=== PATIENT | male | born 1960 | race Two or more races ===

== ENCOUNTER → 2020-02-14 10:28 | Outpatient (BNVA) | payer OTHER, SELFPAY | PROVIDERS: PCP Nurse Practitioner Family; Visit Provider Surgery | DX: Z01.818 Encounter for other preprocedural examination (principal) | CPT/HCPCS: 99203 ==

== ENCOUNTER → 2020-06-06 08:59 | Outpatient (BNVA) | payer OTHER, SELFPAY | PROVIDERS: PCP Nurse Practitioner Family; Visit Provider Surgery | DX: Z12.11 Encounter for screening for malignant neoplasm of colon (principal) | CPT/HCPCS: 99212 ==

== ENCOUNTER 2020-06-25 06:09 | Day surgery (SDC) | payer OTHER, SELFPAY ==
[2020-06-18 16:55] VITALS: BMI 30.9
--- NOTE | 2020-06-24 10:12 | HO.ANESPROP2 ---
Documented by User: Nandini Abdullahi 06/24/20 10:13 HPI - Anesthesia Eval Consult details Narrative: 59yo M for Colonoscopy PMFSH Active Problems Active Problems: All Active Problems (Updated 06/18/20 @ 16:55 by Cecille Sweeney) Colon cancer screening (Acute) HIV (human immunodeficiency virus infection) (Acute) HTN (hypertension), benign (Acute) Past Medical History Medical History Colon cancer screening HIV (human immunodeficiency virus infection) HTN (hypertension), benign Surgical History Surgical History History of inguinal hernia repair Hx of colonoscopy Social History Social History Alcohol intake: current Alcohol intake frequency: holidays/special occasions only Smoking Status: Never smoker Use of substances other than those prescribed or required for medical reasons: No Have you been hit, kicked, punched, or otherwise hurt by someone within the past year? If so, by whom?: No Advance Directives: No Advance Directives Information Provided: No Advance Directives on File: No Meds Allergies Allergy/AdvReac Type Severity Reaction Status Date / Time No Known Allergies Allergy Mild NKA Verified 06/18/20 16:55 Home Medications Medication Instructions Recorded Confirmed Last Taken Type bictegravir 50 mg-emtricitabine 1 tab PO DAILY 02/14/20 06/18/20 Unknown History 200 mg-tenofovir alafenam 25 mg tablet cetirizine 10 mg tablet 10 mg PO DAILY PRN 02/14/20 06/18/20 Unknown History fluticasone propionate 50 2 spray INTRANASAL QAM 02/14/20 06/18/20 Unknown History mcg/actuation nasal spray,suspension cholecalciferol (vitamin D3) 25 mcg PO DAILY 06/18/20 06/18/20 Unknown History [Vitamin D3] Exam Exam Date and Time: June 24, 2020 1012 Height,Weight and Vital Signs: Height 5 ft 5 in Weight 84.368 kg Assessment and Plan Assessment Anesthesia Assessment: Chart Reviewed Documented by User: Kevon Meza 06/25/20 07:16 PMFSH Past Medical History Medical History Colon cancer screening HIV (human immunodeficiency virus infection) HTN (hypertension), benign Family History Family history of problems with anesthesia: No Surgical History Surgical History History of inguinal hernia repair Hx of colonoscopy History of Problems with Anesthesia: No Social History Social History Alcohol intake: current Alcohol intake frequency: holidays/special occasions only Smoking Status: Never smoker Use of substances other than those prescribed or required for medical reasons: No Have you been hit, kicked, punched, or otherwise hurt by someone within the past year? If so, by whom?: No Advance Directives: No Advance Directives Information Provided: No Advance Directives on File: No Meds Allergies Allergy/AdvReac Type Severity Reaction Status Date / Time No Known Allergies Allergy Mild NKA Verified 06/18/20 16:55 Home Medications Medication Instructions Recorded Confirmed Last Taken Type bictegravir 50 mg-emtricitabine 1 tab PO DAILY 02/14/20 06/18/20 Unknown History 200 mg-tenofovir alafenam 25 mg tablet cetirizine 10 mg tablet 10 mg PO DAILY PRN 02/14/20 06/18/20 Unknown History fluticasone propionate 50 2 spray INTRANASAL QAM 02/14/20 06/18/20 Unknown History mcg/actuation nasal spray,suspension cholecalciferol (vitamin D3) 25 mcg PO DAILY 06/18/20 06/18/20 Unknown History [Vitamin D3] Exam Airway Mallampati Class: II TM Dist: <=3cm Neck ROM: Full Heart: ok Lungs: ok
[2020-06-25 06:48] VITALS: BP 123/70; PULSE 65; RESP 18; TEMP 36.3; O2SAT 98
[2020-06-25 07:00] VITALS: BP 123/70; PULSE 65; RESP 18; TEMP 36.3; O2SAT 98
[2020-06-25] MEDS: Lactated Ringers 1,000 ML 100 ML IVCONT (07:12)
--- NOTE | 2020-06-25 07:58 | W.PM.OPN ---
Operative Note Operative Note Date of Service: 06/25/20 Narrative: PREOP DIAGNOSIS: COLON CANCER SCREEN POSTOP DIAGNOSIS: 1. POLYP ABOUT 5 MM IN THE CECUM 2. SUBOPTIMAL BOWEL PREP PROCEDURE: COLONOSCOPY POLYPECTOMY USING COLD FORCEPS X1 SURGEON: NEWTON CRAWLEY MD The patient is a 59-year-old male for screening colonoscopy. He understood the technique procedure. He was aware of the risks, benefits, and alternatives. He was brought to the operating room Andplaced in left lateral decubitus position under monitored anesthesia care. A full digital rectal was done. There were no palpable anal lesions. The tip of the Olympus colonoscope was introduced gently through the anal orifice and advanced with insufflation all the way to the cecum. The cecum was intubated. The cecum was identified by visualization of the ileocecal valve as well as the appendiceal orifice. There was note of a polyp, about 5 mm the cecum. This was removed using multiple bites of the cold forceps. The scope was gradually withdrawn with careful examination of the entire colonic mucosa being done with scope withdrawal. Unfortunately, the patient had multiple segments of the colon with scattered solid stools. We had to do a lot of copious irrigation. It was unlikely that any large lesion may have been missed. There were no other lesions seen. The rectum was examined carefully. He had external hemorrhoids. The rest of the anal canal was unremarkable. The scope was then withdrawn completely. The patient tolerated procedure well. No complication noted. In view of his suboptimal bowel prep, I would recommend another colonoscopy in the next 1-2 years.
[2020-06-25 08:03] VITALS: BP 97/63; PULSE 60; RESP 20; TEMP 36.4; O2SAT 96
--- NOTE | 2020-06-25 08:04 | PM.OP ---
Brief Operative Note Date of Service: 06/25/20 Pre-op diagnosis: colon ca screen Post-op diagnosis: other (polyp in cecum, suboptimal prep) Procedure: colonoscopy, polypectomy x 1 Surgeon: Jesús Cristina MD Anesthesia: MAC Estimated blood loss (mL): 0 Pathology: other (polyp) Condition: stable Disposition: PACU
[2020-06-25 08:18] VITALS: BP 98/69; PULSE 60; RESP 16; O2SAT 97
[2020-06-25 08:25] VITALS: BP 102/63; PULSE 60; RESP 16; O2SAT 99
== END 2020-06-25 09:24 | disposition home or self-care (01) ==
PROVIDERS: Visit Provider Surgery
PROC: 0DJD8ZZ Inspection of Lower Intestinal Tract, Via Natural or Artificial Opening Endoscopic (ICD-10-PCS; CPT 45378; principal; 2020-06-25 07:30)
DX: Z12.11 Encounter for screening for malignant neoplasm of colon (principal); D12.0 Benign neoplasm of cecum; K64.8 Other hemorrhoids; I10 Essential (primary) hypertension; B20 Human immunodeficiency virus [HIV] disease; Z79.899 Other long term (current) drug therapy
CPT/HCPCS: 45380; 88305

== ENCOUNTER → 2020-07-10 08:50 | Outpatient (BNVA) | payer OTHER, SELFPAY | PROVIDERS: Visit Provider Surgery | DX: Z12.11 Encounter for screening for malignant neoplasm of colon (principal); D12.0 Benign neoplasm of cecum | CPT/HCPCS: 99212 ==

== ENCOUNTER 2020-11-25 08:09 | Emergency (ER) | payer OTHER, SELFPAY ==
[2020-11-25 08:28] VITALS: BP 123/63; PULSE 64; RESP 18; TEMP 36.6; O2SAT 97; BMI 30.8
--- NOTE | 2020-11-25 09:08 | ED.ALLEREA ---
HPI - Allergic Reaction General Chief complaint: Allergic Reaction Stated complaint: Allergic reaction Time Seen by Provider: 11/25/20 09:05 Source: patient Mode of arrival: ambulatory Limitations: no limitations History of Present Illness MD complaint: other (skin rash) Onset (ago): day(s) (2) Exposure: plant Symptoms: rash and itching Severity: mild Treatment prior to arrival: none Previous Allergic Reaction History: none Related Data Home Medications Medication Instructions Recorded Confirmed bictegravir 50 mg-emtricitabine 1 tab PO DAILY 02/14/20 07/10/20 200 mg-tenofovir alafenam 25 mg tablet cetirizine 10 mg tablet 10 mg PO DAILY PRN 02/14/20 07/10/20 fluticasone propionate 50 2 spray INTRANASAL QAM 02/14/20 07/10/20 mcg/actuation nasal spray,suspension cholecalciferol (vitamin D3) 25 25 mcg PO DAILY 06/18/20 07/10/20 mcg (1,000 unit) capsule (Vitamin D3) Previous Rx's Medication Instructions Recorded sodium,potassium,mag sulfates 17.5 See Rx Instructions PO .COMPLEX 02/14/20 gram-3.13 gram-1.6 gram oral soln #354 ml (Suprep Bowel Prep Kit) sodium,potassium,mag sulfates 17.5 See Rx Instructions PO .COMPLEX 06/06/20 gram-3.13 gram-1.6 gram oral soln #354 ml (Suprep Bowel Prep Kit) bisacodyl 5 mg tablet,delayed 5 mg PO ONCE 1 Days #2 tab 06/24/20 release (Dulcolax (bisacodyl)) polyethylene glycol 3350 17 119 g PO .twice 1 Days #119 g 06/24/20 gram/dose oral powder (Miralax) docusate sodium 100 mg capsule 100 mg PO DAILY #60 cap 07/16/20 (Colace) prednisone 10 mg tablet See Rx Instructions .ROUTE 11/25/20 .COMPLEX #32 tab Allergies Allergy/AdvReac Type Severity Reaction Status Date / Time No Known Allergies Allergy Mild NKA Verified 07/10/20 09:02 Review of Systems Review of Systems: Constitutional : No Fever, No Chills ENT/Mouth : No sore throat, No Rhinorrhea Eyes: No Eye Pain, No Swelling, No Redness Cardiovascular : No Chest Pain, No SOB Respiratory : No Cough, No Sputum Gastrointestinal : No Nausea, No Vomiting, No Diarrhea, No abdominal Pain Genitourinary : No Dysuria, No Hematuria Musculoskeletal : No joint pain, No Myalgias, No Joint Swelling Skin : No Skin Lesions, positive skin rash Neuro : No Weakness, No Numbness, No Headache Psych : No Anxiety, No Depression Heme/Lymph: No Bruising, No Bleeding,No Lymphadenopathy Endocrine : No Polyuria, No Polydipsia All other systems reviewed and are negative [facility] Past Medical History Attestation statement: The following information was validated with the patient. Medical History Adenoma of cecum Colon cancer screening Colon cancer screening HIV (human immunodeficiency virus infection) HTN (hypertension), benign Surgical History History of inguinal hernia repair Hx of colonoscopy Social History Social History (Updated 11/25/20 @ 09:14 by Orquidea Matthews DO) Alcohol intake: current Alcohol intake frequency: holidays/special occasions only Patient Tobacco Use Status: Never used Tobacco Physical Exam Vital Signs: Vital Signs: Last Vital Signs Temp 97.8 F 11/25/20 08:28 Pulse 64 11/25/20 08:28 Resp 18 11/25/20 08:28 BP 123/63 11/25/20 08:28 Pulse Ox 97 11/25/20 08:28 Body Mass Index 30.8 Appearance: Alert. Oriented X3. No acute distress. Eyes: Pupils equal, round and reactive to light. ENT: Pharynx normal. Neck: Normal inspection. Neck supple. CVS: Normal heart rate and rhythm. Pulses normal. Respiratory: No respiratory distress. Breath sounds normal. Abdomen: Soft and nontender. Skin: Skin warm and dry. Normal skin color. Normal skin turgor. Extremities: No lower extremity edema. linear serpiginous raised areas on arms and legs minimal most notably on R forearm Neuro: Oriented X 3. No motor deficit. No sensory deficit. 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 that are pruritic on arms and legs - minimal sites no resp involvement it is not extensive, oral steroid taper Discharge Plan Discharge Clinical Impression: Allergic dermatitis due to poison yulissa Patient Disposition: Home, Self-Care Instructions: Poison Yulissa (ED) Additional Instructions: return to ED for any worsening symptoms or concerns Prescriptions: New prednisone 10 mg tablet See Rx Instructions .ROUTE .COMPLEX Qty: 32 RF: 0 No Action polyethylene glycol 3350 [Miralax] 17 gram/dose powder 119 g PO .twice 1 Days Qty: 119 RF: 0 bisacodyl [Dulcolax (bisacodyl)] 5 mg tablet,delayed release (DR/EC) 5 mg PO ONCE 1 Days Qty: 2 RF: 0 docusate sodium [Colace] 100 mg capsule 100 mg PO DAILY Qty: 60 RF: 0 cholecalciferol (vitamin D3) [Vitamin D3] 25 mcg (1,000 unit) Capsule 25 mcg PO DAILY RF: 0 Suprep Bowel Prep Kit 17.5-3.13-1.6 gram recon soln See Rx Instructions PO .COMPLEX Qty: 354 RF: 0 Biktarvy 50-200-25 mg tablet 1 tab PO DAILY RF: 0 fluticasone propionate 50 mcg/actuation spray,suspension 2 spray intranasal QAM RF: 0 cetirizine 10 mg tablet 10 mg PO DAILY PRN (Reason: allergies) RF: 0 Suprep Bowel Prep Kit 17.5-3.13-1.6 gram recon soln See Rx Instructions PO .COMPLEX Qty: 354 RF: 0 Stand Alone Forms: Work/School Release Print Language: Pashto
[2020-11-25] MEDS: predniSONE 20 MG TABLET 60 MG PO (09:17)
== END 2020-11-25 09:28 | disposition home or self-care (01) ==
LOC: HO.ED 09:16
PROVIDERS: Emergency Provider Emergency Medicine
DX: L23.7 Allergic contact dermatitis due to plants, except food (principal); R21 Rash and other nonspecific skin eruption
CPT/HCPCS: 99283

== ENCOUNTER 2020-11-28 12:11 | Emergency (ER) | payer OTHER, SELFPAY ==
[2020-11-28 12:24] VITALS: BP 126/77; PULSE 61; RESP 19; TEMP 36.1; O2SAT 99; BMI 29.8
--- NOTE | 2020-11-28 14:14 | ED.GENADULT ---
HPI - General Adult General Chief complaint: General Medical Stated complaint: Recheck Time Seen by Provider: 11/28/20 14:14 Source: patient Mode of arrival: ambulatory Limitations: language barrier History of Present Illness HPI narrative: 60 y/o male presenting to the ER with continued symptoms of poison yulissa. He was seen here on 11/25 and started on a prednisone taper. He reports ongoing itching. He has not tried topical treatments or benadryl. He has been compliant with prednisone. No SOB, wheezing or facial involvement. No new exposures. MD complaint: poison yulissa Onset (ago): day(s) (5) Location: left, right, upper extremity and lower extremity Radiation: non-radiation Severity: severe Quality: burning and aching Pain Consistency: intermittent Relieving factors: cold therapy and medication Associated symptoms: denies other symptoms Treatments prior to arrival: other (prednisone) Related Data Home Medications Medication Instructions Recorded Confirmed bictegravir 50 mg-emtricitabine 1 tab PO DAILY 02/14/20 07/10/20 200 mg-tenofovir alafenam 25 mg tablet cetirizine 10 mg tablet 10 mg PO DAILY PRN 02/14/20 07/10/20 fluticasone propionate 50 2 spray INTRANASAL QAM 02/14/20 07/10/20 mcg/actuation nasal spray,suspension cholecalciferol (vitamin D3) 25 25 mcg PO DAILY 06/18/20 07/10/20 mcg (1,000 unit) capsule (Vitamin D3) Previous Rx's Medication Instructions Recorded sodium,potassium,mag sulfates 17.5 See Rx Instructions PO .COMPLEX 02/14/20 gram-3.13 gram-1.6 gram oral soln #354 ml (Suprep Bowel Prep Kit) sodium,potassium,mag sulfates 17.5 See Rx Instructions PO .COMPLEX 06/06/20 gram-3.13 gram-1.6 gram oral soln #354 ml (Suprep Bowel Prep Kit) bisacodyl 5 mg tablet,delayed 5 mg PO ONCE 1 Days #2 tab 06/24/20 release (Dulcolax (bisacodyl)) polyethylene glycol 3350 17 119 g PO .twice 1 Days #119 g 06/24/20 gram/dose oral powder (Miralax) docusate sodium 100 mg capsule 100 mg PO DAILY #60 cap 07/16/20 (Colace) prednisone 10 mg tablet See Rx Instructions .ROUTE 11/25/20 .COMPLEX #32 tab diphenhydramine HCl 25 mg tablet 50 mg PO TID PRN #20 tab 11/28/20 (Benadryl Allergy) hydrocortisone 2.5 % topical cream 1 appl TOPICAL BID PRN #28 g 11/28/20 prednisone 10 mg tablets in a dose 10 mg PO PER PKG DIR #48 ea 11/28/20 pack Allergies Allergy/AdvReac Type Severity Reaction Status Date / Time No Known Allergies Allergy Mild NKA Verified 11/28/20 12:24 Review of Systems Review of Systems: Constitutional: No Fever, No Chills Eyes: No Eye Pain, No Swelling, No Redness Cardiovascular: No Chest Pain, No SOB Respiratory: No Cough, No Wheezing Gastrointestinal: No Nausea, No Vomiting, No abdominal Pain Musculoskeletal: No joint pain, No Myalgias Skin: + Skin Lesions, + rash Neuro: No Weakness, No Numbness, No Dizziness, No Headache Psych: + Anxiety/Panic, No Depression Heme/Lymph: No Bruising, No Lymphadenopathy PMFSH Past Medical History Medical History Adenoma of cecum Colon cancer screening Colon cancer screening HIV (human immunodeficiency virus infection) HTN (hypertension), benign Surgical History History of inguinal hernia repair Hx of colonoscopy Social History Social History (Updated 11/25/20 @ 09:14 by Orquidea Matthews DO) Alcohol intake: current Alcohol intake frequency: holidays/special occasions only Patient Tobacco Use Status: Never used Tobacco Advance Directives: No Advance Directives Information Provided: Yes Physical Exam Vital Signs: Vital Signs: Last Vital Signs Temp 97 F 11/28/20 12:24 Pulse 61 11/28/20 12:24 Resp 19 11/28/20 12:24 BP 126/77 11/28/20 12:24 Pulse Ox 99 11/28/20 12:24 Body Mass Index 29.8 Const: General: cooperative, healthy appearing, comfortable and no acute distress HENMT: Head: Yes normal to inspection Ears: hearing grossly normal bilaterally General nose exam: Normal external nose present Face and sinus: Yes normal facial exam and Yes face symmetric Mouth: Normal oral and palatal mucosa present, lip normal, tongue normal and oropharynx normal Throat: Yes posterior oropharynx normal Eyes: General: appearance normal, both eyes and all related structures Neck: Neck: Yes normal visual inspection and Yes full ROM Chest: Chest palpation & inspection: normal inspection of the chest Resp: Effort & Inspection: normal respiratory effort and able to speak in complete sentences Auscultation: clear to auscultation bilaterally Skin: Rashes: rashes noted (consistent with poison yulissa dermatitis. no warmth or tenderness) maculopapular rash multiple locations Course Course Course Narrative: 60 y/o male presenting with ongoing itchy skin rash after exposure to poison yulissa several days ago. Symptoms not improving with 40 mg PO prednisone. No evidence of superimposed bacterial infection. Will plan to increase steroid dose, add topical benadryl, PO benadryl and topical hydrocortisone PRN. Patient counseled on expected course and management. He was encouarged to f/u with PCP for further management. Critical Care Time Critical Care Time Critical Care Time: No Discharge Plan Discharge Clinical Impression: Poison yulissa dermatitis Patient Disposition: Home, Self-Care Instructions: Poison Yulissa (ED), Cold Compress or Soak (ED) Additional Instructions: Start the higher dose steroids as directed starting today. Complete the entire course. Take the prescribed Benadryl as needed for itching and use the prescribed cream as needed for itching. Recommend over the counter Benadryl spray to help with itching as well. Use ice to the area to help with itching. Follow up with your doctor as needed. If you develop new or worsening symptoms call 911 or come back to the ER for further evaluation. Prescriptions: New prednisone 10 mg tablets,dose pack 10 mg PO PER PKG DIR Qty: 48 RF: 0 diphenhydramine HCl [Benadryl Allergy] 25 mg tablet 50 mg PO TID PRN (Reason: itching) Qty: 20 RF: 0 hydrocortisone 2.5 % cream 1 appl topical BID PRN (Reason: itching) Qty: 28 RF: 0 No Action polyethylene glycol 3350 [Miralax] 17 gram/dose powder 119 g PO .twice 1 Days Qty: 119 RF: 0 bisacodyl [Dulcolax (bisacodyl)] 5 mg tablet,delayed release (DR/EC) 5 mg PO ONCE 1 Days Qty: 2 RF: 0 docusate sodium [Colace] 100 mg capsule 100 mg PO DAILY Qty: 60 RF: 0 cholecalciferol (vitamin D3) [Vitamin D3] 25 mcg (1,000 unit) Capsule 25 mcg PO DAILY RF: 0 prednisone 10 mg tablet See Rx Instructions .ROUTE .COMPLEX Qty: 32 RF: 0 Suprep Bowel Prep Kit 17.5-3.13-1.6 gram recon soln See Rx Instructions PO .COMPLEX Qty: 354 RF: 0 Biktarvy 50-200-25 mg tablet 1 tab PO DAILY RF: 0 fluticasone propionate 50 mcg/actuation spray,suspension 2 spray intranasal QAM RF: 0 cetirizine 10 mg tablet 10 mg PO DAILY PRN (Reason: allergies) RF: 0 Suprep Bowel Prep Kit 17.5-3.13-1.6 gram recon soln See Rx Instructions PO .COMPLEX Qty: 354 RF: 0 Referrals: [facility] [Primary Care Provider] - 2 days Interventions: ED Discharge Assessment Last Done: 11/28/20 14:55 Discharge Date/Time: 11/28/20 14:56 Print Language: South Korean
== END 2020-11-28 14:56 | disposition home or self-care (01) ==
PROVIDERS: Emergency Provider Emergency Medicine
DX: L23.7 Allergic contact dermatitis due to plants, except food (principal); M79.661 Pain in right lower leg; M79.605 Pain in left leg; M79.604 Pain in right leg; Z79.899 Other long term (current) drug therapy
CPT/HCPCS: 99283

== ENCOUNTER 2021-06-19 09:46 | Outpatient (REF) | payer OTHER, SELFPAY ==
--- NOTE | ~2021-06-19 | MM_ITS ---
EXAMINATION: BONE DENSITOMETRY CLINICAL INDICATION: Other specified personal risk factors, not elsewhere classified. COMPARISON: None (current study represents initial baseline exam). TECHNIQUE: Using a [employer] DXA System (software version: 13.1) manufactured by [employer], dual-energy x-ray absorptiometry was performed of the lumbar spine and left hip. The images are of good technical quality. Summary results are attached. FINDINGS: AP SPINE L1-L4: BMD 1.191 g/cm2, Z-score 0.0, T-score -0.2, normal. LEFT FEMUR, NECK: BMD 0.886 g/cm2, Z-score -0.5, T-score -1.4, osteopenia. LEFT FEMUR, TOTAL: BMD 0.981 g/cm2, Z-score -0.4, T-score -0.8, normal. IDENTIFIED RISK FACTORS: None listed. HISTORY OF FRACTURE: None listed. MEDICATIONS: Vitamin D. MM/XR DEXA axial skeleton IMPRESSION: 1. DIAGNOSIS: Osteopenia based on the lowest T-score value of -1.4 in the femoral neck applying World Health Organization criteria. 2. 10-YEAR FRACTURE RISK PREDICTION, FRAX: Major osteoporotic fracture (clinical spine, forearm, hip or shoulder) 3.3%. Hip fracture 0.4%. 3. Treatment Recommendations: NOF guidelines recommend consideration for treatment in postmenopausal women and men age 50 and older presenting with the following: -A hip or vertebral (clinical or morphometric) fracture. -T-score less than or equal to -2.5 at the femoral neck or spine after appropriate evaluation to exclude secondary causes. -Low bone mass at the hip or spine and a 10-year fracture probability by FRAX of greater than or equal to 3% for hip fracture or greater than or equal to 20% for major osteoporotic fracture based on the [place] adapted WHO algorithm. 4. Other Recommendations: All treatment decisions require clinical judgment and consideration of individual patient factors, including patient preferences, comorbidities, previous drug use, risk factors not captured in the FRAX model (e.g. frailty, falls, vitamin D deficiency, increased bone turnover, interval significant decline in bone density) and possible under or overestimation of fracture risk by FRAX. Additional medical evaluation for secondary cause of low bone mineral density may be appropriate. FUTURE SCAN RECOMMENDATION: People with diagnosed cases of osteoporosis or at high risk for fracture should have regular bone mineral density tests. For patients eligible for Medicare, routine testing is allowed once every 2 years. The testing frequency can be increased to one year for patients who have rapidly progressing disease, those who are receiving or discontinuing medical therapy to restore bone mass, or have additional risk factors.
== END 2021-06-19 09:47 | disposition home or self-care (01) ==
LOC: HO.MAMMO 09:46
PROVIDERS: PCP Nurse Practitioner; Visit Provider Nurse Practitioner
DX: Z13.820 Encounter for screening for osteoporosis (principal); B20 Human immunodeficiency virus [HIV] disease
CPT/HCPCS: 77080

== ENCOUNTER → 2021-07-07 08:29 | Outpatient (BNVA) | payer OTHER, SELFPAY | PROVIDERS: PCP Nurse Practitioner; Referring Provider Nurse Practitioner; Visit Provider Surgery | DX: Z12.11 Encounter for screening for malignant neoplasm of colon (principal) | CPT/HCPCS: 99212 ==

== ENCOUNTER 2021-09-09 06:16 | Day surgery (SDC) | payer OTHER, SELFPAY ==
--- NOTE | 2021-09-08 10:50 | HO.ANESPROP2 ---
Documented by User: Nandini Abdullahi NP 09/08/21 10:51 HPI - Anesthesia Eval Consult details Narrative: 60yo M for Colonoscopy s/p colo 06/2020 with [facility] PMF[facility] Active Problems Active Problems: All Active Problems (Updated 11/29/20 @ 00:02 by Jami Pollack) Adenoma of cecum (Acute) Colon cancer screening (Acute) Colon cancer screening (Acute) HIV (human immunodeficiency virus infection) (Acute) HTN (hypertension), benign (Acute) Past Medical History Medical History Adenoma of cecum Colon cancer screening Colon cancer screening HIV (human immunodeficiency virus infection) HTN (hypertension), benign Family History Family history of problems with anesthesia: No Surgical History Surgical History (Updated 09/03/21 @ 11:02 by Ania Braswell RN) History of inguinal hernia repair Hx of colonoscopy History of Problems with Anesthesia: No Social History Social History Alcohol intake: current Alcohol intake frequency: holidays/special occasions only Patient Tobacco Use Status: Never used Tobacco Are you DNR?: No Advance Directives: No Advance Directives Information Provided: Yes Recently lost weight without trying: No Nutrition Risks: No Nutritional Risk Meds Allergies Allergy/AdvReac Type Severity Reaction Status Date / Time No Known Allergies Allergy Mild NKA Verified 07/07/21 08:40 Home Medications Medication Instructions Recorded Confirmed Last Taken Type bictegravir 50 mg-emtricitabine 1 tab PO DAILY 02/14/20 09/03/21 Unknown History 200 mg-tenofovir alafenam 25 mg tablet cetirizine 10 mg tablet 10 mg PO DAILY PRN 02/14/20 09/03/21 Unknown History fluticasone propionate 50 2 spray INTRANASAL QAM 02/14/20 09/03/21 Unknown History mcg/actuation nasal spray,suspension cholecalciferol (vitamin D3) 25 25 mcg PO DAILY 06/18/20 09/03/21 Unknown History mcg (1,000 unit) capsule (Vitamin D3) Exam Exam Date and Time: September 08, 2021 1050 Assessment and Plan Assessment Anesthesia Assessment: Chart Reviewed Final Anesthetic Review Family History of Problems with Anesthesia: No History of Problems with Anesthesia: No Documented by User: Estrella Arana MD 09/09/21 07:27 [facility] Past Medical History Medical History Adenoma of cecum Colon cancer screening Colon cancer screening HIV (human immunodeficiency virus infection) HTN (hypertension), benign Functional capacity: independent ambulation Surgical History Surgical History (Updated 09/03/21 @ 11:02 by Ania Braswell RN) History of inguinal hernia repair Hx of colonoscopy Social History Social History Alcohol intake: current Alcohol intake frequency: holidays/special occasions only Patient Tobacco Use Status: Never used Tobacco Are you DNR?: No Advance Directives: No Advance Directives Information Provided: Yes Recently lost weight without trying: No Nutrition Risks: No Nutritional Risk Meds Allergies Allergy/AdvReac Type Severity Reaction Status Date / Time No Known Allergies Allergy Mild NKA Verified 07/07/21 08:40 Home Medications Medication Instructions Recorded Confirmed Last Taken Type bictegravir 50 mg-emtricitabine 1 tab PO DAILY 02/14/20 09/03/21 Unknown History 200 mg-tenofovir alafenam 25 mg tablet cetirizine 10 mg tablet 10 mg PO DAILY PRN 02/14/20 09/03/21 Unknown History fluticasone propionate 50 2 spray INTRANASAL QAM 02/14/20 09/03/21 Unknown History mcg/actuation nasal spray,suspension cholecalciferol (vitamin D3) 25 25 mcg PO DAILY 06/18/20 09/03/21 Unknown History mcg (1,000 unit) capsule (Vitamin D3) Exam Airway Mallampati Class: III TM Dist: >3cm Neck ROM: Full Heart: RRR Lungs: CTA Assessment and Plan Final Anesthetic Review ASA Class: II Final Preanesthetic Review: No Changes in Pt Med Stat, Meds/Allgs Chart Reviewed, Consent Obtained/Reviewed and Anes Risks/Benef Reviewed Patient Risk: Low Procedure Risk: Low Anesthetic Plan Anesthetic Plan: MAC: Disposition: Standard PACU
[2021-09-09 06:01] VITALS: BMI 29.9
[2021-09-09 06:22] VITALS: BP 123/69; PULSE 72; RESP 18; TEMP 36.8; O2SAT 98
[2021-09-09] MEDS: Lactated Ringers 1,000 ML 100 ML IVCONT (06:45)
--- NOTE | 2021-09-09 07:21 | MHC.SHP ---
Pre-Procedural Eval Section A Date of Service: 09/09/21 Section B Chief Complaint: screening Details of Present Illness: had poor bowel prep last year Relevant Family History (Specify if Yes): No Present Medications: see Short Stay Collaborative assessment Medical History: Significant History (HTN, HIV) History of Previous Operations: No relevant previous surgery Allergies: Allergies Allergy/AdvReac Type Severity Reaction Status Date / Time No Known Allergies Allergy Mild NKA Verified 07/07/21 08:40 Review of Systems Sugical H&P ROS: Negative: Constitution, Cardiovascular, Respiratory, Neurological, Psychiatric, Hem-Onc, Allergic/Immunologic, Gastrointestinal, Genitourinary, Musculoskeletal, Integumentary, Endocrine and Eyes/Ears/Nose/Throat Exam Surgical H&P Exam: Normal: HEENT, Normal: Heart, Normal: Lungs, Normal: Extremities, Normal: Abdomen, Normal: Skin and Normal: Neurological Plan Diagnosis/Plan: Unchanged I have reviewed the history and physical and performed a pertinent physical examination on my patient. No changes have occurred unless specified.
[2021-09-09 08:08] VITALS: BP 102/57; PULSE 63; RESP 16; TEMP 36.6; O2SAT 94
--- NOTE | 2021-09-09 08:08 | W.PM.OPN ---
Operative Note Operative Note Date of Service: 09/09/21 Narrative: Preop diagnosis: Screening colonoscopy Postop diagnosis: Normal colonoscopy findings Procedure: Colonoscopy Surgeon: Jesús Cristina MD The patient is a 60-year-old male who had a colonoscopy last year with poor bowel prep. I had recommended a repeat colonoscopy with in 1 year because of this. He understood the technique of the procedure. He was aware of the risks, benefits, and alternatives He was brought to the operating room. He was placed in left lateral decubitus position under monitored anesthesia care. a full digital rectal exam was done. There were no palpable anal canal lesions. The tip of the Olympus colonoscope was gently introduced through the anal orifice and advanced with insufflation all the way to the cecum. The cecum was intubated. The cecum identified by visualization of the ileocecal valve as well as the appendiceal orifice. The cecal mucosa was unremarkable. The scope was gradually withdrawn with careful examination of the entire colonic mucosa being done with scope withdrawal. The patient had good bowel prep this time so it was unlikely that any lesion may have been missed. The rectum was reached. There were no lesions seen. The anal canal was unremarkable. They rectal shelf was unremarkable. The scope was then withdrawn completely with desufflation . The patient tolerated procedure well. There were no complications noted . Withdrawal time was about 7 minutes. He falls at average risk for colon cancer. His next colonoscopy may be in the next 10 years.
[2021-09-09 08:23] VITALS: BP 131/76; PULSE 61; RESP 16; TEMP 36.6; O2SAT 99
--- NOTE | 2021-09-09 09:02 | HO.POSTANES ---
Post Anesthesia Evaluation Post Anesthesia Evaluation Vital Signs: Vital Signs Temp Pulse Resp BP Pulse Ox 09/09/21 08:23 98 F 61 16 131/76 99 09/09/21 08:08 97.8 F 63 16 102/57 L 94 09/09/21 06:22 98.2 F 72 18 123/69 98 Anesthesia: Monitored Mental Status: Awake Pain Control: Satisfactory Nausea/Vomiting: None Hydration: Adequate Anesthesia-Related Issues: No Anes. Related Issues
== END 2021-09-09 09:37 | disposition home or self-care (01) ==
PROVIDERS: PCP Nurse Practitioner; Visit Provider Surgery
PROC: 0DJD8ZZ Inspection of Lower Intestinal Tract, Via Natural or Artificial Opening Endoscopic (ICD-10-PCS; CPT 45378; principal; 2021-09-09 07:30)
DX: Z12.11 Encounter for screening for malignant neoplasm of colon (principal); Z86.010 Personal history of colon polyps; B20 Human immunodeficiency virus [HIV] disease; I10 Essential (primary) hypertension; Z79.899 Other long term (current) drug therapy
CPT/HCPCS: G0105

== ENCOUNTER → 2021-09-18 08:43 | Outpatient (BNVA) | payer OTHER, SELFPAY | PROVIDERS: PCP Nurse Practitioner; Referring Provider Nurse Practitioner; Visit Provider Surgery | DX: Z98.890 Other specified postprocedural states (principal) | CPT/HCPCS: 99212 ==

== ENCOUNTER 2022-10-30 14:33 | Emergency (ER) | payer OTHER, SELFPAY ==
[2022-10-30 14:36] VITALS: BP 138/78; PULSE 75; RESP 18; TEMP 36.6; O2SAT 98; BMI 30.6
--- NOTE | 2022-10-30 14:36 | ED_ITS ---
HPI - General Adult General Chief complaint: Headache Stated complaint: headache Time Seen by Provider: 10/30/22 16:27 Source: patient Mode of arrival: ambulatory Limitations: no limitations History of Present Illness HPI narrative: With history of hypertension, HIV with undetectable viral load been having left-sided headache for last 1 week no nausea no vomiting no light sensitivity no head injury no fever no chills no URI symptoms patient with increased stress at home no history of migraine never had similar headaches in the past Related Data Home Medications Medication Instructions Recorded Confirmed bictegravir 50 mg-emtricitabine 1 tab PO DAILY 02/14/20 09/18/21 200 mg-tenofovir alafenam 25 mg tablet cetirizine 10 mg tablet 10 mg PO DAILY PRN allergies 02/14/20 09/18/21 fluticasone propionate 50 2 spray intranasal QAM 02/14/20 09/18/21 mcg/actuation nasal spray,suspension cholecalciferol (vitamin D3) 25 25 mcg PO DAILY 06/18/20 09/18/21 mcg (1,000 unit) capsule (Vitamin D3) Previous Rx's Medication Instructions Recorded bisacodyl 5 mg tablet,delayed 5 mg PO ONCE for bowel prep 1 day 06/24/20 release (Dulcolax (bisacodyl)) #2 tabs [id number] 1 cap PO Q6H PRN headache #20 caps 10/30/22 50 mg-300 mg-40 mg capsule (Fioricet) Allergies Allergy/AdvReac Type Severity Reaction Status Date / Time No Known Allergies Allergy Mild NKA Verified 09/18/21 09:00 Review of Systems Review of Systems: Yes all other systems are reviewed and are negative [facility] Past Medical History Medical History Adenoma of cecum Colon cancer screening Colon cancer screening HIV (human immunodeficiency virus infection) HTN (hypertension), benign Surgical History History of colonoscopy (~09/09/21) History of inguinal hernia repair Hx of colonoscopy Social History Social History Alcohol intake: never Patient Tobacco Use Status: Never used Tobacco Smoked in Last 30 Days: No Use of substances other than those prescribed or required for medical reasons: No Advance Directives: No Advance Directives Information Provided: No Physical Exam ED Vital Signs: Vital Signs - 24 hr 10/30/22 14:36 10/30/22 14:59 Temperature 98 F 98.0 F Pulse Rate 75 72 Respiratory Rate 18 18 Blood Pressure 138/78 124/73 Pulse Oximetry 98 98 Oxygen Delivery Method Room Air Room Air BMI result Body Mass Index 30.6 Appearance: Alert. Oriented X3. No acute distress. Eyes: PERRLA, No Nystagmus ENT: Pharynx normal. Oral Mucosa moist no temporal artery tenderness Neck: Normal inspection. Neck supple. CVS: Normal heart rate and rhythm. Pulses normal. Respiratory: No respiratory distress. Equal air entry bilateral, no wheezing/rales/rhonchi Abdomen: Soft and nontender. Bowel sounds are present, no mass palpable, no CVA tenderness Skin: Skin warm and dry. Normal skin color. Normal skin turgor. Extremities: No lower extremity edema. No calf tenderness Neuro: Oriented X 3. No motor deficit. No sensory deficit.No cerebellar signs , cranial nerves II-XII intact Course Course Course Narrative: This is an RME: Additional HPI, ROS, PE not included below will be deferred to primary provider. 62 year old male with a history of hypertension and HIV presents with left sided headaches that are worse in the morning worsening for the past 2 weeks. Patient reports 6/10 pain. Patient denies fevers, chills, numbness, tingling, nausea, and vomiting. Plan: head CT, labs, ESR, CRP Medications Administered Discontinued Medications Generic Name Dose Route Start Last Admin Trade Name Frances PRN Reason Stop Dose Admin Acetaminophen/Butalbital/Caffeine 1 tab 10/30/22 17:24 10/30/22 17:34 Butalb/Acetamin/Caff 50/325/40 Tablet PO 10/30/22 17:25 1 tab ONCE ONE Administration Medical Decision Making Medical Decision Making [facility] Narrative: Patient nonspecific headache with no relation to the light /posture no fever no chills no warning signs TMJ normal likely has a tension headache/complex migraine will discharge patient home on Fioricet, CT scan of the head was negative acute labs were stable including CRP and sed rate Differential Diagnosis Differential Diagnoses: The differential diagnosis associated with the presentation includes Temporal arteritis/migraine/tension/space-occupying lesion Lab Data [facility] Lab Attestation statement: I reviewed the patient's lab results. 10/30/22 15:09 10/30/22 15:09 Labs: Lab Results 10/30/22 10/30/22 10/30/22 Range/Units 15:09 15:09 15:09 WBC 6.8 (4.8-10.8) X10*3/uL RBC 4.73 (4.60-5.80) X10*6/uL Hgb 14.7 (14.0-18.0) g/dl Hct 42.8 (42.0-52.0) % MCV 90.5 (80.0-98.0) fL MCH 31.1 (27.0-33.0) pg MCHC 34.3 (31.0-36.0) g/dl RDW 13.0 (11.0-16.0) % Plt Count 273 (160-400) X10*3/uL MPV 9.4 (9.4-12.4) fL Immature Gran % (Auto) 0.3 (0.0-0.4) % Neut % (Auto) 65.0 (45-73) % Lymph % (Auto) 26.3 (20-40) % [place] % (Auto) 5.6 (2-11) % Eos % (Auto) 2.2 (0-4) % Baso % (Auto) 0.6 (0-2) % Lymph # (Auto) 1.8 (1.2-4.9) X10*3/uL [place] # (Auto) 0.4 (0.1-1.2) X10*3/uL Eos # (Auto) 0.2 (0.0-0.4) X10*3/uL Baso # (Auto) 0.0 (0.0-0.2) X10*3/uL Abs Immat Gran (auto) 0.02 (0.00-0.03) X10*3/uL Absolute Neuts (auto) 4.4 (2.0-8.3) x10*3/uL Absolute Nucleated RBC 0.000 (0.0-0.012) X10*3/uL Nucleated RBC % (auto) 0.0 (0.0-0.2) /100WBC ESR 7 (0-15) MM/HR Sodium 142 (135-145) mmol/L Potassium 3.7 (3.3-5.1) mmol/L Chloride 110 H (96-108) mmol/L Carbon Dioxide 22 (22-29) mmol/L Anion Gap 14 (12-20) BUN 11 (9-16) mg/dL Creatinine 1.11 (0.5-1.4) mg/dL Estim Creat Clear Calc 67.7 Estimated GFR > 60 Random Glucose 88 (60-115) mg/dL Calcium 9.4 (8.4-10.2) mg/dL Magnesium 2.0 (1.6-2.6) mg/dL Total Bilirubin 0.4 (0.0-1.0) mg/dL AST 24 (5-37) U/L ALT 17 (0-40) U/L Alkaline Phosphatase 88 (39-117) U/L C-Reactive Protein 0.30 (< or = 0.50) mg/dL Total Protein 7.6 (6.5-8.0) g/dL Albumin 4.4 (3.5-5.0) g/dL Discharge Plan Discharge Clinical Impression: Tension headache Patient Disposition: Home, Self-Care Instructions: Tension Headache (ED) Additional Instructions: Take medication for headache as prescribed cause of headache is possible tension/complex migraine Sleep well Follow-up with PCP [place] la medicaci?n para el dolor de douglas seg?n lo prescrito la causa del dolor de douglas es posible tensi?n/migra?a compleja Dormir judy Seguimiento con PCP Prescriptions: New liiavhqvze-ssjxdrtkjbfjr-[id number] [Fioricet] 50-300-40 mg capsule 1 cap PO Q6H PRN (Reason: headache) Qty: 20 0RF No Action bisacodyl [Dulcolax (bisacodyl)] 5 mg tablet,delayed release (DR/EC) 5 mg PO ONCE 1 Days Qty: 2 0RF Rx Instructions: take 2 tabs between 3pm and 4pm on the day prior to the procedure, then begin Miralax mixture at 6pm. cholecalciferol (vitamin D3) [Vitamin D3] 25 mcg (1,000 unit) Capsule 25 mcg PO DAILY Biktarvy 50-200-25 mg tablet 1 tab PO DAILY fluticasone propionate 50 mcg/actuation spray,suspension 2 spray intranasal QAM cetirizine 10 mg tablet 10 mg PO DAILY PRN (Reason: allergies) Interventions: ED Discharge Assessment Last Done: 10/30/22 17:58 Discharge Date/Time: 10/30/22 17:59 Print Language: Italian
[2022-10-30 14:59] VITALS: BP 124/73; PULSE 72; RESP 18; TEMP 36.7; O2SAT 98; BMI 30.6
== END 2022-10-30 17:59 | disposition home or self-care (01) ==
PROVIDERS: Emergency Provider Internal Medicine; PCP Nurse Practitioner
DX: R51.9 Headache, unspecified (principal); Z79.899 Other long term (current) drug therapy
CPT/HCPCS: 36415; 70450; 80053; 83735; 85025; 85652; 86140; 99284

== ENCOUNTER 2022-11-02 10:23 | Outpatient (REF) | payer OTHER, SELFPAY ==
[2022-11-03 17:33] LABS: HIV RNA PCR Qn Copies 198 copies/mL (NOT DETECTED)
[2022-11-04 10:49] LABS: Absolute CD4 Count 611 cells/uL (490-1740); Absolute CD8 Count 405 cells/uL (180-1170); Absolute Lymphocytes 1711 cells/uL (850-3900); CD4 CD8 Ratio 1.51 (0.86-5.00); Percent CD4 Cells 36 % (30-61); Percent CD8 Cells 24 % (12-42)
== END 2022-11-02 10:24 | disposition home or self-care (01) ==
LOC: HO.WFDLDS 10:23
PROVIDERS: Visit Provider Family Medicine
DX: B20 Human immunodeficiency virus [HIV] disease (principal); G96.9 Disorder of central nervous system, unspecified
CPT/HCPCS: 36415; 80053; 85025; 86360; 87536

== ENCOUNTER 2022-12-04 13:53 | Outpatient (REF) | payer OTHER, SELFPAY ==
[2022-12-09 18:19] LABS: HIV RNA PCR Qn Copies 155 Copies/mL; HIV RNA PCR Qn Log Copies 2.19 Log cps/mL
== END 2022-12-04 13:54 | disposition home or self-care (01) ==
LOC: HO.HHCL 13:53
PROVIDERS: Visit Provider Student in an Organized Health Care Education/Training Program
DX: B20 Human immunodeficiency virus [HIV] disease (principal); G96.9 Disorder of central nervous system, unspecified
CPT/HCPCS: 36415; 87536; 87900

== ENCOUNTER 2023-01-25 12:00 | Outpatient (REF) | payer OTHER, SELFPAY ==
[2023-01-28 11:59] LABS: HIV RNA PCR Qn Copies 121 Copies/mL; HIV RNA PCR Qn Log Copies 2.08 Log cps/mL
== END 2023-01-25 12:01 | disposition home or self-care (01) ==
LOC: HO.HHCL 12:00
PROVIDERS: Visit Provider Student in an Organized Health Care Education/Training Program
DX: B20 Human immunodeficiency virus [HIV] disease (principal)
CPT/HCPCS: 36415; 87536; 87900

== ENCOUNTER 2023-02-23 11:15 | Outpatient (REF) | payer OTHER, SELFPAY ==
[2023-03-03 20:19] LABS: HIV 1 Integrase Proviral DNA DETECTED; HIV 1 PR RT Proviral DNA DETECTED
== END 2023-02-23 11:16 | disposition home or self-care (01) ==
LOC: HO.HHCL 11:15
PROVIDERS: Visit Provider Student in an Organized Health Care Education/Training Program
DX: B20 Human immunodeficiency virus [HIV] disease (principal); G96.9 Disorder of central nervous system, unspecified
CPT/HCPCS: 36415; 87900; 87901; 87906

== ENCOUNTER 2023-03-15 10:31 | Outpatient (REF) | payer OTHER, SELFPAY ==
--- NOTE | ~2023-03-15 | XR_ITS ---
EXAMINATION: XR ABDOMEN KUB CLINICAL INDICATION: Abdominal pain. COMPARISON: Ultrasound abdomen 07/06/2012 TECHNIQUE: AP view of the abdomen. FINDINGS: The bowel gas pattern is normal with no evidence of ileus or obstruction. No unusual soft tissue calcifications are noted. There is right inguinal hernia repair changes. Small phleboliths are seen in the left lower pelvis. The bones are unremarkable. XR/XR abdomen 1V IMPRESSION: Nonspecific bowel gas pattern with no evidence of obstruction.
== END 2023-03-15 10:32 | disposition home or self-care (01) ==
LOC: HO.HHCX 10:31
PROVIDERS: Visit Provider Student in an Organized Health Care Education/Training Program
DX: R10.9 Unspecified abdominal pain (principal)
CPT/HCPCS: 74018

== ENCOUNTER 2023-05-24 08:23 | Outpatient (REF) | payer OTHER, SELFPAY ==
[2023-05-24 11:15] LABS: MANUAL DIFF FLAG NO
[2023-05-24 11:26] LABS: Basophils Percent Auto 0.6 % (0-2); Eosinophils Absolute Auto 0.2 X10*3/uL (0.0-0.4); Eosinophils Percent Auto 3.5 % (0-4); Hematocrit 44.4 % (42.0-52.0); Hemoglobin 14.9 g/dl (14.0-18.0); Imm Gran Abs Auto 0.01 X10*3/uL (0.00-0.03); Imm Gran Pct Auto 0.2 % (0.0-0.4); Lymphocytes Percent Auto 31.1 % (20-40); Mean Corpuscular HGB Conc 33.6 g/dl (31.0-36.0); Mean Corpuscular Hemoglobin 30.7 pg (27.0-33.0); Mean Corpuscular Volume 91.4 fL (80.0-98.0); Mean Platelet Volume 10.3 fL (9.4-12.4); Monocytes Absolute Auto 0.3 X10*3/uL (0.1-1.2); Monocytes Percent Auto 4.8 % (2-11); Neutrophils Absolute Auto 3.8 x10*3/uL (2.0-8.3); Neutrophils Percent Auto 59.8 % (45-73); Platelet Count 323 X10*3/uL (160-400); Red Blood Count 4.86 X10*6/uL (4.60-5.80); Red Cell Distribution Width 12.7 % (11.0-16.0); White Blood Count 6.3 X10*3/uL (4.8-10.8)
[2023-05-24 11:52] LABS: Estimated Average Glucose 105 mg/dL; Hemoglobin A1c % 5.3 % (<6.0)
[2023-05-24 12:01] LABS: Alanine Aminotransferase 17 U/L (0-40); Albumin Level 4.2 g/dL (3.5-5.0); Alkaline Phosphatase 81 U/L (39-117); Anion Gap 13 (12-20); Aspartate Amino Transferase 19 U/L (5-37); Bilirubin Total 0.5 mg/dL (0.0-1.0); Blood Urea Nitrogen 16 mg/dL (9-16); Calcium 9.4 mg/dL (8.4-10.2); Carbon Dioxide 22 mmol/L (22-29); Chloride 111 mmol/L (96-108); Cholesterol 154 mg/dL (<200); Estimated Glomerular Filt Rate > 60; Glucose Random 95 mg/dL (60-115); HDL Cholesterol 44 mg/dL (>40); LDL Cholesterol Calculated 95 mg/dL (<100); Potassium 3.7 mmol/L (3.3-5.1); Sodium 142 mmol/L (135-145); Total Protein 7.3 g/dL (6.5-8.0); Triglycerides 77 mg/dL (<150)
[2023-05-24 12:32] LABS: HBS Num1 0.38 mIU/mL (0-7.99); HBc Num1 0.14 S/CO (0.00-0.79); HBsAGNum1 0.33 S/CO (0.00-0.99); Hepatitis B Core Antibody Nonreactive (Nonreactive); Hepatitis B Surface Antigen Negative (Negative); ~Hepatitis B Surface Antibody NONREACTIVE (Nonreactive)
[2023-05-24 12:38] LABS: CT PCR NOT DETECTED (Not Detect.); NG PCR NOT DETECTED (Not Detect.)
[2023-05-24 13:17] LABS: Syphilis Screen Nonreactive (Nonreactive)
[2023-05-24 13:19] LABS: ~HepC Num1 0.09 S/CO (0.00-0.79); ~Hepatitis C Antibody Nonreactive (Nonreactive)
[2023-05-24 13:45] LABS: Reflex LDLD? No
[2023-05-25 08:39] LABS: Mumps Virus IgG Antibody <9.00 AU/mL; Rubeola IgG (Measles) >300.00 AU/mL
[2023-05-25 12:27] LABS: Absolute CD3 Count 1214 cells/uL (840-3060); Absolute CD4 Count 676 cells/uL (490-1740); Absolute CD8 Count 538 cells/uL (180-1170); Absolute Lymphocytes 2285 cells/uL (850-3900); CD4 CD8 Ratio 1.26 (0.86-5.00); Percent CD3 Cells 53 % (57-85); Percent CD4 Cells 30 % (30-61); Percent CD8 Cells 24 % (12-42)
[2023-05-26 11:38] LABS: HIV RNA PCR Qn Copies 33 copies/mL (NOT DETECTED); HIV RNA PCR Qn Log Copies 1.52 (NOT DETECTED)
[2023-05-27 08:08] LABS: TS Negative Control Passed; TS Panel A 0; TS Panel B 0; TS Positive Control Passed; TSpotTB Negative (Negative)
== END 2023-05-24 08:24 | disposition home or self-care (01) ==
LOC: HO.HHCL 08:23
PROVIDERS: Visit Provider Student in an Organized Health Care Education/Training Program
DX: B20 Human immunodeficiency virus [HIV] disease (principal); G96.9 Disorder of central nervous system, unspecified
CPT/HCPCS: 0353U; 36415; 80053; 80061; 83036; 85025; 86359; 86360; 86481; 86704; 86706; 86735; 86762; 86765; 86780; 86803; 87340; 87536

== ENCOUNTER 2023-06-30 13:44 | Outpatient (REF) | payer OTHER, SELFPAY ==
--- NOTE | ~2023-06-30 | MM_ITS ---
EXAMINATION: BONE DENSITOMETRY CLINICAL INDICATION: Due for update, osteopenia. COMPARISON: Baseline BD dated 06/19/2021. TECHNIQUE: Using a Qwiki DXA System (software version: 13.1) manufactured by [employer], dual-energy x-ray absorptiometry was performed of the lumbar spine and left hip. The images are of good technical quality. Summary results are attached. FINDINGS: LEFT FEMUR, NECK: Current: BMD 0.873 g/cm2, Z-score -0.6, T-score -1.5, osteopenia. Baseline: BMD 0.886 g/cm2. LEFT FEMUR, TOTAL: Current: BMD 0.969 g/cm2, Z-score -0.5, T-score -0.9, normal, 1.2% decrease from baseline (<5% change is not significant). Baseline: BMD 0.981 g/cm2. AP SPINE L1-L4: Current: BMD 1.198 g/cm2, Z-score 0.1, T-score -0.2, normal, 0.6% increase from baseline (<5% change is not significant). Baseline: BMD 1.191 g/cm2. IDENTIFIED RISK FACTORS: None listed. HISTORY OF FRACTURE: None listed. MEDICATIONS: None listed. MM/XR DEXA axial skeleton IMPRESSION: 1. DIAGNOSIS: Osteopenia based on the lowest T-score value of -1.5 in the femoral neck applying World Health Organization criteria. 2. 10-YEAR FRACTURE RISK PREDICTION, FRAX: Major osteoporotic fracture (clinical spine, forearm, hip or shoulder) 3.4%. Hip fracture 0.5%. 3. Treatment Recommendations: NOF guidelines recommend consideration for treatment in postmenopausal women and men age 50 and older presenting with the following: -A hip or vertebral (clinical or morphometric) fracture. -T-score less than or equal to -2.5 at the femoral neck or spine after appropriate evaluation to exclude secondary causes. -Low bone mass at the hip or spine and a 10-year fracture probability by FRAX of greater than or equal to 3% for hip fracture or greater than or equal to 20% for major osteoporotic fracture based on the [place] adapted WHO algorithm. 4. Other Recommendations: All treatment decisions require clinical judgment and consideration of individual patient factors, including patient preferences, comorbidities, previous drug use, risk factors not captured in the FRAX model (e.g. frailty, falls, vitamin D deficiency, increased bone turnover, interval significant decline in bone density) and possible under or overestimation of fracture risk by FRAX. Additional medical evaluation for secondary cause of low bone mineral density may be appropriate. FUTURE SCAN RECOMMENDATION: People with diagnosed cases of osteoporosis or at high risk for fracture should have regular bone mineral density tests. For patients eligible for Medicare, routine testing is allowed once every 2 years. The testing frequency can be increased to one year for patients who have rapidly progressing disease, those who are receiving or discontinuing medical therapy to restore bone mass, or have additional risk factors.
== END 2023-06-30 13:45 | disposition home or self-care (01) ==
LOC: HO.MAMMO 13:44
PROVIDERS: Visit Provider Nurse Practitioner Primary Care
DX: Z13.820 Encounter for screening for osteoporosis (principal); M85.852 Other specified disorders of bone density and structure, left thigh
CPT/HCPCS: 77080

== ENCOUNTER 2023-08-23 11:48 | Outpatient (REF) | payer OTHER, SELFPAY | END 2023-08-23 11:49 | disposition home or self-care (01) | LOC: HO.HHCLNP 11:48 | PROVIDERS: Visit Provider Student in an Organized Health Care Education/Training Program | DX: B20 Human immunodeficiency virus [HIV] disease (principal); G96.9 Disorder of central nervous system, unspecified | CPT/HCPCS: 88112 ==

== ENCOUNTER 2023-11-10 10:23 | Outpatient (REF) | payer OTHER, SELFPAY ==
[2023-11-12 16:03] LABS: HIV RNA PCR Qn Copies 47 copies/mL (NOT DETECTED); HIV RNA PCR Qn Log Copies 1.67 (NOT DETECTED)
== END 2023-11-10 10:24 | disposition home or self-care (01) ==
LOC: HO.HHCL 10:23
PROVIDERS: Visit Provider Student in an Organized Health Care Education/Training Program
DX: B20 Human immunodeficiency virus [HIV] disease (principal)
CPT/HCPCS: 36415; 87536

== ENCOUNTER 2024-01-03 07:46 | Emergency (ER) | payer OTHER, SELFPAY ==
--- NOTE | ~2024-01-03 | XR_ITS ---
EXAMINATION: XR CERVICAL SPINE CLINICAL INFORMATION: Neck pain without trauma COMPARISON: None available. TECHNIQUE: 3 views of the cervical spine were obtained. FINDINGS: Degenerative changes are present in the cervical spine predominantly from C4 through T1 with disc space narrowing and some endplate osteophytes. No prevertebral soft tissue swelling, fractures or subluxations seen. The odontoid is not well visualized. XR/XR cervical spine 3V IMPRESSION: Degenerative changes present from C4 through T1. The odontoid is poorly visualized. Electronically signed by: Dayron Yung MD 01/03/2024 09:05 AM EDT
[2024-01-03 07:49] VITALS: BP 134/80; PULSE 59; RESP 16; TEMP 36.5; O2SAT 99; BMI 31.0
--- NOTE | 2024-01-03 10:26 | ED_ITS ---
HPI - Neck Pain/Injury General Chief Complaint: Neck Pain/Injury Stated Complaint: pain across shoulders into neck Time Seen by Provider: 01/03/24 08:12 Source: patient Mode of arrival: ambulatory Limitations: language barrier ( Croatian speaking only) History of Present Illness ED Provider: Dr. Robert Huynh HPI Narrative: 63-year-old male with history HIV disease, hypertension, stroke who presents emergency department for evaluation of neck and shoulder pain. He states he is having pain in his neck for approximately 1 1/2 months. He has been taking naproxen daily which is given him some relief. He states that over the last several days the pain is gotten worse. He states the pain is worse with movement. He denied any injury. He denied fever, chills, numbness, weakness. Related Data Home Medications ?Medication ?Instructions ?Recorded ?Confirmed bictegravir 50 mg-emtricitabine 1 tab PO DAILY 02/14/20 09/18/21 200 mg-tenofovir alafenam 25 mg tablet cetirizine 10 mg tablet 10 mg PO DAILY PRN allergies 02/14/20 09/18/21 fluticasone propionate 50 2 spray intranasal QAM 02/14/20 09/18/21 mcg/actuation nasal spray,suspension cholecalciferol (vitamin D3) 25 25 mcg PO DAILY 06/18/20 09/18/21 mcg (1,000 unit) capsule (Vitamin D3) Previous Rx's ?Medication ?Instructions ?Recorded bisacodyl 5 mg tablet,delayed 5 mg PO ONCE for bowel prep 1 day 06/24/20 release (Dulcolax (bisacodyl)) #2 tabs hrrosrfdgw-nokqzepxigeai-ukfsmzlz 1 cap PO Q6H PRN headache #20 caps 10/30/22 50 mg-300 mg-40 mg capsule (Fioricet) cyclobenzaprine 10 mg tablet 10 mg PO TID PRN pain, muscle 01/03/24 spasm #15 tabs Allergies Allergy/AdvReac Type Severity Reaction Status Date / Time No Known Allergies Allergy Mild NKA Verified 01/03/24 07:56 Review of Systems Review of Systems: Yes all other systems are reviewed and are negative PMFSH Past Medical History Medical History Adenoma of cecum Colon cancer screening Colon cancer screening HIV (human immunodeficiency virus infection) HTN (hypertension), benign Surgical History History of colonoscopy (~09/09/21) History of inguinal hernia repair Hx of colonoscopy Social History Social History Alcohol intake: never Patient Tobacco Use Status: Never used Tobacco Advance Directives: No Advance Directives Information Provided: Yes Do you have a plan to hurt others: No Plan Physical Exam Vital Signs: Vital Signs: Last Vital Signs Temp 97.6 F 01/03/24 11:24 Pulse 52 01/03/24 11:24 Resp 14 01/03/24 11:24 BP 127/64 01/03/24 11:24 Pulse Ox 99 01/03/24 11:24 O2 Del Method Room Air 01/03/24 11:24 BMI result Body Mass Index 31.0 Vital signs revealed a low pulse of 52 otherwise unremarkable Exam: General: Awake, alert in no distress Head: Normocephalic, atraumatic EENT: PERRL, Lids normal, sclera normal, conjunctiva normal, nose normal , ears normal, throat without erythema or exudates Neck: patient has tenderness palpation of his trapezius muscles bilaterally left greater than right his limited range of motion of his neck secondary to pain and spasm of the neck muscles Lung: breath sounds symmetric, no wheezing, rales or rhonchi Chest: symmetric movement, nontender Heart: regular rate and rhythm, normal S1, S2 no murmurs or rubs Abdomen: soft, non-tender, nondistended, normal bowel sounds Back: no vertebral tenderness, no CVAT Extremities: no deformities, moves all extremities symmetrically Neuro: Awake, alert, oriented, normal speech, cranial nerves intact, moves all extremities symmetrically Psych: Pleasant, cooperative Medications Administered Discontinued Medications Generic Name Dose Route Start Last Admin Trade Name Freq PRN Reason Stop Dose Admin Cyclobenzaprine HCl 10 mg 01/03/24 10:27 01/03/24 10:30 Cyclobenzaprine Hcl 10 Mg Tablet PO 01/03/24 10:28 10 mg ONCE ONE Administration Medical Decision Making Medical Decision Making MDM Narrative: 63-year-old male with history HIV disease, hypertension, stroke who presents emergency department for evaluation of neck and shoulder pain x1 1/2, no reported injury, pain is worse with movement. Patient has been taking naproxen and with some relief. Pain is worse in the last several days. Patient had no concerning systemic symptoms. He had no numbness or weakness. Vital signs revealed a low heart rate. Exam did reveal tenderness palpation of the trap ezius muscles bilaterally left greater than right and limited range of motion secondary to pain. Neurologic exam is unremarkable. Differential diagnosis: Includes but is not limited to musculoskeletal pain, musculoskeletal spasm, degenerative joint disease, degenerative disc disease, infectious process Following evaluation was ordered: cervical spine three view Patient was initially treated with the following: cyclobenzaprine 10 mg orally Course: The patient's physical examination was consistent with musculoskeletal pain and spasm of the trapezius muscles. Cervical spine x-rays did reveal degenerative joint disease in this may explain why the patient has had pain for 1.5 months. I did discuss this with the patient. Patient was advised to continue taking his and said. He was also prescribed Flexeril ( cyclobenzaprine) 10 mg 3 times a day as needed for pain and spasm. He is advised to use a heating pad on low for 15 minutes 4 to 6 times a day. He was given printed and verbal instructions and instructions and he was discharged home. Admission/Observation Consideration of admission/observation: Escalation of care including admission/observation considered Independent Interpretation I performed an independent interpretation of an: Plain X-Ray Interpretation: my independent interpretation patient's cervical spine x-rays as follows: No acute fracture, patient does have degenerative joint disease Radiology Impression Discussion of test interpretation with radiology: I have reviewed the radiologist's reading. Radiologist Impression: XR cervical spine 3V IMPRESSION: Degenerative changes present from C4 through T1. The odontoid is poorly visualized. Dictated By: Dayron Yung MD Prescription Management I considered prescription management with: Other ( antispasm medications- Flexeril) Chronic Conditions Patient?s care impacted by: Hypertension and Other ( HIV disease) Discharge Plan Discharge Clinical Impression: Cervical muscle strain, Muscle spasm, Degenerative joint disease Patient Disposition: Home, Self-Care Instructions: Osteoarthritis (ED), Cervical Sprain (ED) Additional Instructions: The x-ray of your neck shows that you have arthritis of the neck and this may be causing your pain and spasm of your neck muscles Continue taking your anti-inflammatory medication as prescribed by your doctor. Take Flexeril (cyclobenzaprine) 10 mg pills, 1 pill every 6-8 hours as needed for pain or spasm. ?This medication will make you sleepy. ?Do not drive or work while taking this medication. Apply heat for 15 minutes 4 to 6 times a day to your neck muscles for the next 3-4 days and that should help improve your pain. Follow-up with your doctor in 2 days. Please return to the emergency department if your symptoms get worse or if you develop any symptoms that are concerning to you. Prescriptions: New cyclobenzaprine 10 mg tablet 10 mg PO TID PRN (Reason: pain, muscle spasm) Qty: 15 0RF No Action bisacodyl [Dulcolax (bisacodyl)] 5 mg tablet,delayed release (DR/EC) 5 mg PO ONCE 1 Days Qty: 2 0RF Rx Instructions: take 2 tabs between 3pm and 4pm on the day prior to the procedure, then begin Miralax mixture at 6pm. cholecalciferol (vitamin D3) [Vitamin D3] 25 mcg (1,000 unit) Capsule 25 mcg PO DAILY znikzaslau-ozerziralswxd-pfol [Fioricet] 50-300-40 mg capsule 1 cap PO Q6H PRN (Reason: headache) Qty: 20 0RF Biktarvy 50-200-25 mg tablet 1 tab PO DAILY fluticasone propionate 50 mcg/actuation spray,suspension 2 spray intranasal QAM cetirizine 10 mg tablet 10 mg PO DAILY PRN (Reason: allergies) Interventions: ED Discharge Assessment Last Done: 01/03/24 11:24 Discharge Date/Time: 01/03/24 11:25 Print Language: Croatian
[2024-01-03] MEDS: Cyclobenzaprine HCl 10 MG TABLET PO (10:30)
[2024-01-03 11:11] VITALS: BP 127/64; PULSE 52; RESP 14; TEMP 36.4; O2SAT 99
[2024-01-03 11:24] VITALS: BP 127/64; PULSE 52; RESP 14; TEMP 36.4; O2SAT 99
== END 2024-01-03 11:25 | disposition home or self-care (01) ==
PROVIDERS: Emergency Provider Emergency Medicine Emergency Medical Services
DX: S16.1XXA Strain of muscle, fascia and tendon at neck level, initial encounter (principal); M47.892 Other spondylosis, cervical region; M54.2 Cervicalgia; M25.512 Pain in left shoulder; M25.511 Pain in right shoulder; X58.XXXA Exposure to other specified factors, initial encounter; Y93.89 Activity, other specified; Y92.89 Other specified places as the place of occurrence of the external cause; Y99.8 Other external cause status; Z79.899 Other long term (current) drug therapy
CPT/HCPCS: 72040; 99283; 99284

== ENCOUNTER 2024-04-24 13:08 | Outpatient (REF) | payer OTHER, SELFPAY ==
[2024-04-24 16:17] LABS: MANUAL DIFF FLAG NO
[2024-04-24 16:21] LABS: Basophils Percent Auto 0.6 % (0-2); Eosinophils Absolute Auto 0.3 X10*3/uL (0.0-0.4); Eosinophils Percent Auto 3.8 % (0-4); Hematocrit 44.3 % (42.0-52.0); Hemoglobin 15.3 g/dl (14.0-18.0); Imm Gran Abs Auto 0.02 X10*3/uL (0.00-0.03); Imm Gran Pct Auto 0.3 % (0.0-0.4); Lymphocytes Absolute Auto 2.4 X10*3/uL (1.2-4.9); Lymphocytes Percent Auto 34.9 % (20-40); Mean Corpuscular HGB Conc 34.5 g/dl (31.0-36.0); Mean Corpuscular Hemoglobin 31.3 pg (27.0-33.0); Mean Corpuscular Volume 90.6 fL (80.0-98.0); Mean Platelet Volume 9.7 fL (9.4-12.4); Monocytes Absolute Auto 0.4 X10*3/uL (0.1-1.2); Monocytes Percent Auto 6.3 % (2-11); Neutrophils Absolute Auto 3.7 x10*3/uL (2.0-8.3); Neutrophils Percent Auto 54.1 % (45-73); Platelet Count 298 X10*3/uL (160-400); Red Blood Count 4.89 X10*6/uL (4.60-5.80); Red Cell Distribution Width 13.2 % (11.0-16.0); White Blood Count 6.9 X10*3/uL (4.8-10.8)
[2024-04-24 16:35] LABS: Alanine Aminotransferase 19 U/L (0-40); Albumin Level 4.1 g/dL (3.5-5.0); Alkaline Phosphatase 105 U/L (39-117); Anion Gap 12 (12-20); Aspartate Amino Transferase 29 U/L (5-37); Bilirubin Total 0.6 mg/dL (0.0-1.0); Blood Urea Nitrogen 10 mg/dL (9-16); Calcium 9.1 mg/dL (8.4-10.2); Carbon Dioxide 24 mmol/L (22-29); Chloride 110 mmol/L (96-108); Estimated Glomerular Filt Rate > 60; Glucose Random 79 mg/dL (60-115); Potassium 3.8 mmol/L (3.3-5.1); Sodium 142 mmol/L (135-145); Total Protein 7.3 g/dL (6.5-8.0)
[2024-04-25 15:58] LABS: HIV RNA PCR Qn Copies 226 copies/mL (NOT DETECTED); HIV RNA PCR Qn Log Copies 2.35 (NOT DETECTED)
[2024-04-27 13:23] LABS: Absolute CD3 Count 1238 cells/uL (840-3060); Absolute CD4 Count 709 cells/uL (490-1740); Absolute CD8 Count 541 cells/uL (180-1170); Absolute Lymphocytes 2304 cells/uL (850-3900); CD4 CD8 Ratio 1.31 (0.86-5.00); Percent CD3 Cells 54 % (57-85); Percent CD4 Cells 31 % (30-61); Percent CD8 Cells 23 % (12-42)
== END 2024-04-24 13:09 | disposition home or self-care (01) ==
LOC: HO.HHCL 13:08
PROVIDERS: Visit Provider Student in an Organized Health Care Education/Training Program
DX: B20 Human immunodeficiency virus [HIV] disease (principal); G96.9 Disorder of central nervous system, unspecified
CPT/HCPCS: 36415; 80053; 85025; 86359; 86360; 87536

== ENCOUNTER 2024-06-13 08:14 | Outpatient (REF) | payer OTHER, SELFPAY ==
[2024-06-13 12:02] LABS: Cholesterol 115 mg/dL (<200); HDL Cholesterol 40 mg/dL (>40); LDL Cholesterol Calculated 65 mg/dL (<100); Triglycerides 52 mg/dL (<150)
== END 2024-06-13 08:15 | disposition home or self-care (01) ==
LOC: HO.HHCL 08:14
PROVIDERS: Visit Provider Nurse Practitioner Primary Care
DX: E78.5 Hyperlipidemia, unspecified (principal)
CPT/HCPCS: 36415; 80061

== ENCOUNTER 2024-07-05 10:24 | Outpatient (REF) | payer OTHER, SELFPAY ==
[2024-07-05 11:21] LABS: MANUAL DIFF FLAG NO
[2024-07-05 11:41] LABS: Basophils Percent Auto 0.5 % (0-2); Eosinophils Absolute Auto 0.3 X10*3/uL (0.0-0.4); Eosinophils Percent Auto 3.4 % (0-4); Hematocrit 43.9 % (42.0-52.0); Hemoglobin 14.7 g/dl (14.0-18.0); Imm Gran Abs Auto 0.01 X10*3/uL (0.00-0.03); Imm Gran Pct Auto 0.1 % (0.0-0.4); Lymphocytes Absolute Auto 2.2 X10*3/uL (1.2-4.9); Lymphocytes Percent Auto 28.2 % (20-40); Mean Corpuscular HGB Conc 33.5 g/dl (31.0-36.0); Mean Corpuscular Hemoglobin 30.6 pg (27.0-33.0); Mean Corpuscular Volume 91.5 fL (80.0-98.0); Mean Platelet Volume 9.5 fL (9.4-12.4); Monocytes Absolute Auto 0.4 X10*3/uL (0.1-1.2); Monocytes Percent Auto 5.4 % (2-11); Neutrophils Absolute Auto 4.8 x10*3/uL (2.0-8.3); Neutrophils Percent Auto 62.4 % (45-73); Platelet Count 334 X10*3/uL (160-400); Red Cell Distribution Width 13.1 % (11.0-16.0); White Blood Count 7.7 X10*3/uL (4.8-10.8)
[2024-07-05 11:51] LABS: Estimated Average Glucose 117 mg/dL; Hemoglobin A1C 150.7705 umol/L; Hemoglobin A1c % 5.7 % (<6.0)
[2024-07-05 12:13] LABS: Alanine Aminotransferase 22 U/L (0-40); Albumin Level 4.4 g/dL (3.5-5.0); Alkaline Phosphatase 72 U/L (39-117); Anion Gap 9 (12-20); Aspartate Amino Transferase 27 U/L (5-37); Bilirubin Direct 0.2 mg/dL (0.0-0.5); Bilirubin Total 0.4 mg/dL (0.0-1.0); Blood Urea Nitrogen 16 mg/dL (9-16); Calcium 9.6 mg/dL (8.4-10.2); Carbon Dioxide 27 mmol/L (22-29); Chloride 111 mmol/L (96-108); Estimated Glomerular Filt Rate > 60; Glucose Random 87 mg/dL (60-115); Potassium 4.3 mmol/L (3.3-5.1); Sodium 143 mmol/L (135-145)
[2024-07-05 13:00] LABS: HBc Num1 0.16 S/CO (0.00-0.79); HBsAGNum1 0.29 S/CO (0.00-0.99); Hepatitis B Core Antibody Nonreactive (Nonreactive); Hepatitis B Surface Antigen Negative (Negative); ~HepC Num1 0.14 S/CO (0.00-0.79); ~Hepatitis B Surface Antibody REACTIVE (Nonreactive); ~Hepatitis C Antibody Nonreactive (Nonreactive)
[2024-07-05 13:18] LABS: CT PCR NOT DETECTED (Not Detect.); NG PCR NOT DETECTED (Not Detect.)
[2024-07-06 17:33] LABS: HIV RNA PCR Qn Copies <20 DETECTED copies/mL (NOT DETECTED); HIV RNA PCR Qn Log Copies <1.30 DETECTED (NOT DETECTED)
[2024-07-06 21:39] LABS: Trichomonas vaginalis RNA NOT DETECTED (NOT DETECTED)
[2024-07-07 21:19] LABS: TS Negative Control Passed; TS Panel A 0; TS Panel B 0; TS Positive Control Passed; TSpotTB Negative (Negative)
[2024-07-09 13:48] LABS: Absolute CD3 Count 1207 cells/uL (840-3060); Absolute CD4 Count 674 cells/uL (490-1740); Absolute CD8 Count 551 cells/uL (180-1170); Absolute Lymphocytes 2270 cells/uL (850-3900); CD4 CD8 Ratio 1.22 (0.86-5.00); Percent CD3 Cells 53 % (57-85); Percent CD4 Cells 30 % (30-61); Percent CD8 Cells 24 % (12-42)
== END 2024-07-05 10:25 | disposition home or self-care (01) ==
LOC: HO.HHCL 10:24
PROVIDERS: Visit Provider Internal Medicine
DX: B20 Human immunodeficiency virus [HIV] disease (principal); G96.9 Disorder of central nervous system, unspecified; Z13.1 Encounter for screening for diabetes mellitus
CPT/HCPCS: 80053; 82248; 82550; 83036; 85025; 86359; 86360; 86481; 86704; 86706; 86803; 87340; 87491; 87536; 87591; 87661

== ENCOUNTER 2024-08-28 12:05 | Outpatient (REF) | payer OTHER, SELFPAY | END 2024-08-28 12:06 | disposition home or self-care (01) | LOC: HO.HHCLNP 12:05 | PROVIDERS: Visit Provider Student in an Organized Health Care Education/Training Program | DX: B20 Human immunodeficiency virus [HIV] disease (principal) | CPT/HCPCS: 88112 ==

== ENCOUNTER 2024-09-26 12:45 | Outpatient (AMB) | payer OTHER, SELFPAY ==
--- NOTE | 2024-09-26 12:52 | A.OFFVIS_ITS ---
Intake Visit Reasons: urinary urgency Intake Note: New Patient presents for initial visit for urinary urgency Urology Medications: none Blood Thinner: none PVR: 12ml's Superintendent Schools Required: Yes Superintendent Schools Services: Superintendent Schools Present Superintendent [employer] Name: [id number] Information Interpreted: non-clinical & clinical Accompanied by: Self / Same As Patient Allergies No Known Allergies Allergy (Mild, Verified 09/26/24 13:52) NKA Medication List - Last Reconciled 09/26/24 by IZZY Schmidt- oinerewrl-upcfvpoh-nsswfix ala 50-200-25 mg 1 tab PO DAILY bisacodyl (Dulcolax (bisacodyl)) 5 mg PO ONCE 1 day swbgtmqxiw-ezzmfaafugemd-sqqt 50-300-40 mg (Fioricet) 1 cap PO Q6H PRN cetirizine 10 mg PO DAILY PRN cholecalciferol (vitamin D3) (Vitamin D3) 25 mcg PO DAILY HPI Comments Details: Miguel is a Wolof-speaking 64-year-old male patient of Dr. burgos. He has a past medical history of HIV and hypertension. He presents to the office today as a new patient for ongoing lower urinary tract symptoms he has been experiencing. In discussion with the patient today he reports for many years he has been experiencing episodes of urinary urgency and frequency however has most recently discusses with a PCP and recommendations were made for urology referral for further assessment evaluation. In office urinalysis results reviewed with the patient today within normal limits. PVR 12 mL. In review of patient's chart PSA 07/12 2.9. We discussed potential causes for these lower urinary tract symptoms patient is experiencing. He does report nocturia x1. He otherwise denies incontinence, hematuria, dysuria, foul smelling urine, changes to urinary stream, flank pain, fever, and or chills. We discussed obtaining retroperi toneal ultrasound and PSA for further assessment evaluation. JUAN FRANCISCO offered however deferred. We did discussed bladder triggers and irritants. We discussed potential near future in office cystoscopy and or urodynamics if symptoms persist and/or worsen. All questions were answered. He otherwise offers no other issues or concerns at this time. [facility] Medical History Adenoma of cecum Colon cancer screening Colon cancer screening HIV (human immunodeficiency virus infection) HTN (hypertension), benign Surgical History History of colonoscopy (~09/09/21) History of inguinal hernia repair Hx of colonoscopy Social History Alcohol intake: never Patient Tobacco Use Status: Never used Tobacco Review of Systems Const All systems reviewed & are unremarkable except as noted in HPI and below Physical Exam Const General: cooperative, healthy appearing, comfortable, no acute distress, well developed, alert and awake Orientation/consciousness: patient oriented x3 Limitations: language barrier HEENT Head: Yes normal to inspection, Yes normocephalic and Yes atraumatic Ears: hearing grossly normal bilaterally Eyes General: appearance normal, both eyes and all related structures Neck Neck: Yes normal visual inspection and Yes trachea midline Chest Chest palpation & inspection: normal inspection of the chest Resp Effort & Inspection: normal respiratory effort and able to speak in complete sentences Cardio Rate: regular rate GI Inspection: Yes normal to inspection General: Yes no CVA tenderness Back/Spine/Pelvis Back: no CVA tenderness Skin General skin exam: no rashes or lesions noted Neuro General: patient oriented x3 Extrem General: Yes normal to inspection Psych Appearance: grossly normal and well kempt Mental Status: mental status grossly normal Speech and movement: Normal speech and movement present and Clear speech present Affect: normal affect Attitude: cooperative Thought process: Normal thought process present Thought content: Normal thought content present Insight: Fair insight present (Psych) Judgement: Fair judgement present (Psych) Office Procedures Post Void Residual Post Residual Void Post Void Residual (PVR): 12 72000-Bdnd Void Residual by ultrasound Results AMB Urinalysis, Automated UA Leukoctes 0 Florentino/uL Last Edit by SMA Cara on 09/26/24 13:16 UA Nitrite Last Edit by SMA Cara on 09/26/24 13:16 UA Urobilinogen 0.2 mg/dL Last Edit by Kelby Fraire, [facility] on 09/26/24 13:16 UA Protein 15 mg/dL Last Edit by Kelby Fraire, [facility] on 09/26/24 13:16 UA pH 6.0 Last Edit by Kelby Fraire, [facility] on 09/26/24 13:16 UA Blood 0 Arash/uL Last Edit by Kelby Fraire, [facility] on 09/26/24 13:16 UA Specific Killen 1.015 Last Edit by Kelby Fraire, [facility] on 09/26/24 13:16 UA Ketone Last Edit by Kelby Fraire, [facility] on 09/26/24 13:16 UA Bilirubin 0 mg/dL Last Edit by Kelby Fraire, [facility] on 09/26/24 13:16 UA Glucose 0 mg/dL Last Edit by Kelby Fraire, [facility] on 09/26/24 13:16 Results Reviewed Results Reviewed: Laboratory Last Values Urine pH (Auto) 6.0 09/26/24 13:15 Specific Killen (Auto) 1.015 09/26/24 13:15 Urine Protein (Auto) 15 mg/dL 09/26/24 13:15 Glucose (UA)(Auto) 0 mg/dL 09/26/24 13:15 Urine Blood (Auto) 0 Arash/uL 09/26/24 13:15 Urine Bilirubin (Auto) 0 mg/dL 09/26/24 13:15 Urine Urobilinogen (Auto) 0.2 mg/dL 09/26/24 13:15 Leukocyte Esterase (Auto) 0 Florentino/uL 09/26/24 13:15 Assessment & Plan Assessment & Plan (1) Urinary frequency: Code(s): R35.0 - Frequency of micturition Category: Medical (2) Urinary urgency: Code(s): R39.15 - Urgency of urination Category: Medical Plan In office urinalysis results reviewed with the patient today; as noted above. PVR 12 mL. Will obtain retroperitoneal ultrasound for further assessment evaluation. Will obtain redraw of PSA for further assessment evaluation. We discussed bladder triggers and irritants. We discussed healthy bathroom behaviors. JUAN FRANCISCO offered however deferred. Follow-up in 1-3 months with imaging and PSA to be completed prior; or sooner with any issues, concerns, and or questions. Orders: Orders AMB Post Void Residual by ultrasound Today Z13.9 - Encounter for screening, unspecified AMB Urinalysis Automated Today Z13.9 - Encounter for screening, unspecified US retroperitoneal comp Today R35.0 - Frequency of micturition, R39.15 - Urgency of urination Prostate Specific Antigen Today R35.0 - Frequency of micturition, R39.15 - Urgency of urination Patient Instructions: The patient had an opportunity to ask questions regarding the treatment plan. All questions were answered. Physical exam, labs, and imaging were discussed and reviewed in detail. As well as risks, benefits, and discussion of treatment choices. No major barriers to understanding were identified. The patient expressed understanding and agreement with the above treatment plan. The patient was made aware they should contact our office by phone for worsening of their current condition, the appearance of new symptoms, or with any questions or concerns. Compliance is encouraged with any medications and follow up testing that is ordered. It is a privilege to be allowed the opportunity to participate in? your urological care.? Again, if you have any questions or concerns If you have any questions or concerns please do not hesitate to contact me. The office is [phone]. This note is constructed using voice recognition software. While every effort has been made to ensure accuracy yarn winder errors may have been included. Yours sincerely, TERENCE Schmidt Coding Level of Care Code New Pt Level 3 (57817) Diagnoses Urinary frequency R35.0 Urinary urgency R39.15 CPT Codes Post Residual Void - PVR CPT Code: 99722-Uudt Void Residual by ultrasound ([id number])
== END 2024-09-26 13:51 | disposition home or self-care (01) ==
LOC: HO.HUSH 12:46
PROVIDERS: PCP Nurse Practitioner Primary Care; Visit Provider Nurse Practitioner Family
DX: R35.0 Frequency of micturition (principal); R39.15 Urgency of urination; Z13.9 Encounter for screening, unspecified
CPT/HCPCS: 99203

== ENCOUNTER → 2024-09-26 12:45 | Outpatient (BNVA) | payer OTHER, SELFPAY | PROVIDERS: PCP Nurse Practitioner Primary Care; Visit Provider Nurse Practitioner Family | DX: R35.0 Frequency of micturition (principal); R39.15 Urgency of urination | CPT/HCPCS: 51798; 81003; 99202 ==

== ENCOUNTER 2024-12-18 09:52 | Outpatient (REF) | payer OTHER, SELFPAY ==
--- NOTE | ~2024-12-18 | US_ITS ---
CLINICAL HISTORY: R39.15 - Urgency of urination US Renal Comparison: None provided Findings: Right kidney normal size and echotexture, 10.7 cm length. Left kidney normal size and echotexture, 11.2 cm length. No collecting system dilatation of either kidney. Normal color Doppler. Urinary bladder is unremarkable. Prevoid volume 303 mL. Postvoid volume 17 mL. IMPRESSION: 1. Normal kidneys. 2. Postvoid residual volume 17 mL. This document has been electronically signed by: Basilia Almazan MD on 12/18/2024 18:03:37
== END 2024-12-18 09:53 | disposition home or self-care (01) ==
LOC: HO.US 09:52
PROVIDERS: PCP Nurse Practitioner Primary Care; Visit Provider Nurse Practitioner Family
DX: R39.15 Urgency of urination (principal); R35.0 Frequency of micturition
CPT/HCPCS: 76770

== ENCOUNTER → 2024-12-18 09:56 | Outpatient (BNV) | payer OTHER, SELFPAY | PROVIDERS: PCP Nurse Practitioner Primary Care; Visit Provider Specialist | DX: R39.15 Urgency of urination (principal) | CPT/HCPCS: 76770 ==

== ENCOUNTER 2024-12-27 09:30 | Outpatient (REF) | payer OTHER, SELFPAY ==
[2024-12-27 11:34] LABS: MANUAL DIFF FLAG NO
[2024-12-27 11:39] LABS: Hematocrit 44.6 % (42.0-52.0); Hemoglobin 14.6 g/dl (14.0-18.0); Imm Gran Abs Auto 0.01 X10*3/uL (0.00-0.03); Imm Gran Pct Auto 0.2 % (0.0-0.4); Lymphocytes Absolute Auto 1.7 X10*3/uL (1.2-4.9); Mean Corpuscular HGB Conc 32.7 g/dl (31.0-36.0); Mean Corpuscular Hemoglobin 30.0 pg (27.0-33.0); Mean Corpuscular Volume 91.8 fL (80.0-98.0); NRBC Abs Auto 0.000 X10*3/uL (0.0-0.012); NRBC Pct Auto 0.0 /100WBC (0.0-0.2); Platelet Count 323 X10*3/uL (160-400); Red Blood Count 4.86 X10*6/uL (4.60-5.80); White Blood Count 6.3 X10*3/uL (4.8-10.8)
[2024-12-27 12:06] LABS: Alanine Aminotransferase 21 U/L (0-40); Albumin Level 4.7 g/dL (3.5-5.0); Alkaline Phosphatase 71 U/L (39-117); Anion Gap 11 (12-20); Aspartate Amino Transferase 29 U/L (5-37); Blood Urea Nitrogen 19 mg/dL (9-16); Calcium 9.3 mg/dL (8.4-10.2); Carbon Dioxide 26 mmol/L (22-29); Chloride 110 mmol/L (96-108); Estimated Glomerular Filt Rate > 60; Potassium 4.3 mmol/L (3.3-5.1); Sodium 143 mmol/L (135-145); Total Protein 7.4 g/dL (6.5-8.0)
[2024-12-27 12:46] LABS: Prostate Specific Antigen 4.37 ng/mL (<0.05-4.0)
[2024-12-27 12:49] LABS: Prostate Specific Antigen 4.35 ng/mL (<0.05-4.0)
[2024-12-27 12:52] LABS: HBS Num1 371.01 mIU/mL (0-7.99); HBc Num1 0.13 S/CO (0.00-0.79); ~Hepatitis B Surface Antibody REACTIVE (Nonreactive)
[2024-12-28 12:39] LABS: HIV RNA PCR Qn Copies NOT DETECTED copies/mL (NOT DETECTED); HIV RNA PCR Qn Log Copies NOT DETECTED (NOT DETECTED)
[2024-12-30 21:53] LABS: Absolute CD3 Count 1101 cells/uL (840-3060); Absolute CD8 Count 450 cells/uL (180-1170); Percent CD3 Cells 57 % (57-85); Percent CD8 Cells 23 % (12-42)
== END 2024-12-27 09:31 | disposition home or self-care (01) ==
LOC: HO.HHCL 09:30
PROVIDERS: Nurse Practitioner Family; PCP Nurse Practitioner Primary Care; Referring Provider Student in an Organized Health Care Education/Training Program; Visit Provider Internal Medicine
DX: B20 Human immunodeficiency virus [HIV] disease (principal); G96.9 Disorder of central nervous system, unspecified; R35.0 Frequency of micturition; R39.15 Urgency of urination; N40.0 Benign prostatic hyperplasia without lower urinary tract symptoms; Z11.59 Encounter for screening for other viral diseases; Z12.5 Encounter for screening for malignant neoplasm of prostate
CPT/HCPCS: 36415; 80053; 84153; 85025; 86359; 86360; 86704; 86706; 87086; 87536

== ENCOUNTER 2025-02-20 07:21 | Outpatient (AMB) | payer OTHER, SELFPAY ==
--- NOTE | 2025-02-20 07:21 | A.OFFVIS_ITS ---
Intake Visit Reasons: 3m/PSA/US Intake Note: Patient presents for 3 mo follow up visit for urinary urgency Urology Medications: none Blood Thinner: none LASTPVR: 12ml's Imaging: ultrasound 12/18/24 Labs done 12/27/24 : PSA 4.37 Knot Saw Operator Required: Yes Knot Saw Operator Services: Knot Saw Operator Present Knot Saw Operator Name: [email or web address] [id number] Information Interpreted: non-clinical & clinical Accompanied by: Self / Same As Patient Allergies No Known Allergies Allergy (Mild, Verified 02/20/25 07:52) NKA Medication List - Last Reconciled 02/20/25 by IZZY Schmidt-GILDA aovstgrfc-lagbnkdi-iwvpbzw ala 50-200-25 mg 1 tab PO DAILY bisacodyl (Dulcolax (bisacodyl)) 5 mg PO ONCE 1 day fsumxozmmv-qjzadjnhrxzmw-vdls 50-300-40 mg (Fioricet) 1 cap PO Q6H PRN cetirizine 10 mg PO DAILY PRN cholecalciferol (vitamin D3) (Vitamin D3) 25 mcg PO DAILY HPI Comments Details: Miguel is a [place] Islander-speaking 64-year-old male patient of Dr. burgos. He has a past medical history of HIV and hypertension. He is being followed up on today via telehealth. Of note, patient was seen approximately 4 months ago as a new patient for ongoing lower urinary tract symptoms he has been experiencing at which time a retroperitoneal ultrasound and PSA were ordered for further assessment evaluation. These results were reviewed and communicated with the patient today. 12/18 bilateral kidneys are normal in size and echotexture. No collecting system dilatation of either kidney. The urinary bladder is unremarkable. Postvoid bladder volume 17 mL. The prostate measures 12.7 mL. PSAs are as follows: 07/12 2.9, 01/18 4.4 He continues to experience episodes of urinary urgency and frequency. We did discussed potential causes of these lower urinary tract symptoms as well as borderline elevated PSA. When asked he denies any known family history of prostate cancer. He denies incontinence, hematuria, dysuria, foul smelling urine, changes to urinary stream, flank pain, fever, and or chills. We discussed obtaining redraw of PSA with no sex the night before, no caffeine morning of, and no heavy lifting 1-2 days prior. All questions were answered. He otherwise offers no other issues or concerns at this time. [facility] Medical History Adenoma of cecum Colon cancer screening Colon cancer screening HIV (human immunodeficiency virus infection) HTN (hypertension), benign Surgical History History of colonoscopy (~09/09/21) History of inguinal hernia repair Hx of colonoscopy Social History Alcohol intake: never Patient Tobacco Use Status: Never used Tobacco Review of Systems Const All systems reviewed & are unremarkable except as noted in HPI and below Physical Exam Const General: cooperative Orientation/consciousness: patient oriented x3 Resp Effort & Inspection: able to speak in complete sentences Neuro General: patient oriented x3 Psych Attitude: cooperative Thought content: Normal thought content present Insight: Fair insight present (Psych) Judgement: Fair judgement present (Psych) Telehealth Telehealth Telehealth Platform: Telephone Location of provider rendering services: practice address Location of patient: address on file Patient Identification confirmed using: Name, : Yes Telehealth method: voice only Patient verbally consented to treatment: Yes Patient verbally consented to billing insurance company: Yes Patient informed of any privacy concerns related to visit: Yes Minutes spent on Phone/Video with Pt.: 25 Results Reviewed Results Reviewed: Date of Service: 12/18/24 Procedure(s): US retroperitoneal comp Findings: Right kidney normal size and echotexture, 10.7 cm length. Left kidney normal size and echotexture, 11.2 cm length. No collecting system dilatation of either kidney. Normal color Doppler. Urinary bladder is unremarkable. Prevoid volume 303 mL. Postvoid volume 17 mL. IMPRESSION: 1. Normal kidneys. 2. Postvoid residual volume 17 mL. Assessment & Plan Assessment & Plan (1) Elevated PSA: Code(s): R97.20 - Elevated prostate specific antigen [PSA] Category: Medical (2) Urinary frequency: Code(s): R35.0 - Frequency of micturition Category: Medical (3) Urinary urgency: Code(s): R39.15 - Urgency of urination Category: Medical Plan Recent retroperitoneal ultrasound results reviewed with the patient today; as noted above. Recent PSA results reviewed with the patient today; as noted above. Start Flomax as discussed and prescribed. We did discussed potential causes of elevated PSA as well as lower urinary tract symptoms; we discussed further treatment options and risks and benefits of these treatment options. All questions were answered. We discussed bladder triggers and irritants. We discussed healthy bathroom behaviors. Will obtain redraw of PSA with no sex the night before, no caffeine morning of, and no heavy lifting 1-2 days prior. Follow-up in 1-2 months with PSA to be completed prior; or sooner with any issues, concerns, and or questions. Orders: Orders PSA,Total (Free>4and<10) Today R97.20 - Elevated prostate specific antigen [PSA] Medications: New tamsulosin 0.4 mg PO BEDTIME 30 caps 3RF 30 days N40.1 - Benign prostatic hyperplasia with lower urinary tract symptoms, R35.1 - Nocturia Patient Instructions: The patient had an opportunity to ask questions regarding the treatment plan. All questions were answered. Physical exam, labs, and imaging were discussed and reviewed in detail. As well as risks, benefits, and discussion of treatment choices. No major barriers to understanding were identified. The patient expressed understanding and agreement with the above treatment plan. The patient was made aware they should contact our office by phone for worsening of their current condition, the appearance of new symptoms, or with any questions or concerns. Compliance is encouraged with any medications and follow up testing that is ordered. It is a privilege to be allowed the opportunity to participate in? your urological care.? Again, if you have any questions or concerns If you have any questions or concerns please do not hesitate to contact me. The office is [phone]. This note is constructed using voice recognition software. While every effort has been made to ensure accuracy front desk admin errors may have been included. Yours sincerely, TERENCE Schmidt Coding Level of Care Code Tele Est Pt Level 4 (47386) Complex EM visit Add On G2211 Diagnoses Elevated PSA R97.20 Urinary frequency R35.0 Urinary urgency R39.15
== END 2025-02-20 08:38 | disposition home or self-care (01) ==
LOC: HO.HUSH 07:21
PROVIDERS: PCP Nurse Practitioner Primary Care; Visit Provider Nurse Practitioner Family
DX: R97.20 Elevated prostate specific antigen [PSA] (principal); R35.0 Frequency of micturition; R39.15 Urgency of urination
CPT/HCPCS: 99214; G2211

== ENCOUNTER 2025-04-09 11:28 | Outpatient (REF) | payer OTHER, SELFPAY ==
[2025-04-09 13:21] LABS: PSA,Total (Free>4and<10) 4.52 ng/mL (0.00-4.00)
[2025-04-11 12:44] LABS: Free Prostate Spec Ag 0.6 ng/mL; Percent Free Prostate Spec Ag 14 % (calc) (>25)
== END 2025-04-09 11:29 | disposition home or self-care (01) ==
LOC: HO.LAB 11:28
PROVIDERS: Absent Provider Nurse Practitioner Family; PCP Nurse Practitioner Primary Care; Visit Provider Student in an Organized Health Care Education/Training Program
DX: R97.20 Elevated prostate specific antigen [PSA] (principal); Z12.5 Encounter for screening for malignant neoplasm of prostate
CPT/HCPCS: 36415; 84153; 84154